=== PATIENT | female | born 1955 ===

== ENCOUNTER 2017-09-04 08:22 | Day surgery (SDC) | payer MEDICARE, MEDICAID ==
[2017-09-04 09:17] VITALS: BMI 25.8
[2017-09-04] MEDS ORDERED: Lactated Ringer's 500 ML IV ONE (09:18)
[2017-09-04] MEDS ORDERED: Lidocaine 2% MPF (5 ml) Inj ONE (10:45)
[2017-09-04] MEDS ORDERED: Propofol 10 mg/ml Inj (20 ML) ONE (10:45)
[2017-09-04] MEDS ORDERED: Midazolam 2 MG/2 ML VIAL ONE (10:45)
[2017-09-04] MEDS ORDERED: Benzocaine/Butamben/Tetracai 14-2-2% TOP Spray TOP ONE (10:45)
[2017-09-04 11:17] VITALS: TEMP 97; O2SAT 99
[2017-09-04 11:31] VITALS: BP 109/71; PULSE 58; RESP 18
== END 2017-09-04 11:32 | disposition home or self-care (01) ==
LOC: H.ENDO 08:22
PROVIDERS: ATTEND Internal Medicine Gastroenterology
DX: R10.13 Epigastric pain (principal); K44.9 Diaphragmatic hernia without obstruction or gangrene; K31.9 Disease of stomach and duodenum, unspecified; K31.7 Polyp of stomach and duodenum; K29.50 Unspecified chronic gastritis without bleeding
CPT/HCPCS: 43239; 88305; J2250; J2704; J7120

== ENCOUNTER 2018-03-02 08:10 | Day surgery (SDC) | payer OTHER ==
[2018-03-02] MEDS ORDERED: Lactated Ringer's 1,000 ML IV ONE (08:49)
[2018-03-02 09:04] VITALS: TEMP 97.6
[2018-03-02] MEDS ORDERED: Propofol 10 mg/ml Inj (20 ML) ONE (10:03)
[2018-03-02 10:24] VITALS: RESP 14
[2018-03-02 10:33] VITALS: BP 100/50; PULSE 50; O2SAT 99
== END 2018-03-02 11:02 | disposition home or self-care (01) ==
LOC: H.ENDO 08:10
PROVIDERS: ATTEND Internal Medicine Gastroenterology
DX: Z12.11 Encounter for screening for malignant neoplasm of colon (principal); J45.909 Unspecified asthma, uncomplicated; E78.5 Hyperlipidemia, unspecified; I10 Essential (primary) hypertension; F41.9 Anxiety disorder, unspecified; K64.8 Other hemorrhoids
CPT/HCPCS: 45378; J2001; J2704; J7120